=== PATIENT | male | born 1995 | race African-American/Black ===

== ENCOUNTER 2016-12-15 19:59 | Emergency (ER) | payer OTHER ==
[2016-12-15] MEDS ORDERED: ONDANSETRON 4 MG ORAL DISINTEGRATING TAB (S0181) As Ordered ONE (21:11)
--- NOTE | 2016-12-15 22:37 | EDDOCDS ---
Nurse's Notes [facility] Name: Tino Cunha Age: 21 yrs Sex: Male : 1995 Arrival Date: 12/15/2016 Time: 19:59 Bed TR6 Private MD: Other - Complete Info On Cds Diagnosis: Nausea with vomiting, unspecified;Diarrhea, unspecified Presentation: 12/15 20:04 Presenting complaint: Patient states: fever, stomach cramps, nausea, diarrhea for the dsf past 24 hours. Adult Sepsis Screening: The patient does not have new or worsening altered mentation. Patient's respiratory rate is less than 22. Systolic blood pressure is greater than 100. Patient has a qSOFA score of 0- Negative Sepsis Screen. Suicide/Homicide risk assessment- the patient denies having any suicidal and/or homicidal ideations and does not present with any other emotional, behavioral or mental health complaints. Status: The patient is an active duty branch service associate. Transition of care: patient was not received from another setting of care. 20:04 Acuity: KAI Level 3 dsf 20:04 Method Of Arrival: Walkin/Carried/Asstd dsf Triage Assessment: 20:05 General: Appears in no apparent distress, Behavior is appropriate for age, cooperative, dsf Reports fever for 12-24 hours, fatigue for 12-24 hours. Pain: Location: abdomen Pain currently is 10 out of 10 on a pain scale. Quality of pain is described as crampy. 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 Respiratory: Airway is patent Respiratory effort is even, unlabored, Respiratory pattern is regular, symmetrical, Reports cough that is non-productive. GI: Reports diarrhea, nausea. Historical: - Allergies: no known allergies; - Home Meds: 1. Tylenol 500 mg Oral 2 tabs as needed (Last dose: 12/15/2016 16:30) - PMHx: none; - PSHx: none; - Social history: Smoking status: Patient states was never smoker of tobacco. No barriers to communication noted, The patient speaks fluent Chinese, Speaks appropriately for age. - : The pt / caregiver states he / she is not on anticoagulants. Home medication list is obtained from the patient. - Exposure Risk Screening:: None identified. Assessment: 21:54 General: pt able to take and retain p.o. fluids. cz Vital Signs: 20:02 BP 117 / 66; Pulse 84; Resp 18 S; Temp 99.7(O); Pulse Ox 100% on R/A; Weight 106.59 kg gr2 (R); Height 6 ft. 0 in. (182.88 cm) (R); Pain 5/10; 22:20 BP 129 / 69; Pulse 77; Resp 20; Temp 97.9(O); Pulse Ox 99% on R/A; Pain 6/10; jmv 20:02 Body Mass Index 31.87 (106.59 kg, 182.88 cm) gr2 Vitals: 20:02 Log In Time: December 15, 2016 at 20:02. gr2 ED Course: 20:01 Patient visited by Brent Tim. gr2 20:01 Other - Complete Info On Cds is Private Physician. gr2 20:01 Patient moved to Waiting gr2 20:03 Patient visited by Brent Tim. gr2 20:03 Patient moved to Pre RCE gr2 20:05 Triage Initiated dsf 20:47 Patient moved to Triage 1 cz 21:00 Jose Mari PA-C is PHCP. dk1 21:00 Asa Olguin DO is Attending Physician. dk1 21:02 Patient visited by Jose Mari PA-C. dk1 21:15 Patient moved to PR cz 21:17 Patient name changed from Tino\S\L\S\Alphonse\S\ to Tino\S\Awde\S\Alphonse. EDMS 21:19 [facility] Payment Agreement was scanned into [employer] and attached to record. gb 21:54 Patient visited by Carlin Johns RN. cz 22:10 [facility]. dk1 22:21 Patient visited by Luisito Peña PCA. jmv 22:29 Patient moved to TR6 cz Administered Medications: 21:15 Drug: Ondansetron ODT 4 mg [ondansetron 4 mg disintegrating tablet (1 tabs)] Route: PO; cz Order Results: There are currently no results for this order. Outcome: 22:11 Discharge ordered by Provider. dk1 22:36 Discharge Assessment: Patient awake, alert and oriented x 3. No cognitive and/or cz functional deficits noted. Patient verbalized understanding of disposition instructions. patient administered narcotics - no. The following High Risk Discharge criteria are identified: None. Discharged to home ambulatory, with family. Condition: stable. Discharge instructions given to patient, Instructed on discharge instructions, follow up and referral plans. medication usage, Demonstrated understanding of instructions, medications, Pt was receptive of discharge instructions/ teaching. Prescriptions given X 1. No special radiology studies were completed. Property :Personal belongings accompany Pt. 22:37 Patient left the ED. cz Signatures: Dispatcher [employer] EDTX Carlin Johns RN RN Claudia Hager, Reg Reg gb Jose Mari, PA-C PA-C dk1 Tori OrozcoRN RN clydef Brent Tim gr2 Luisito Peña, ARCHIE TEAM FOREMAN menav MTDD
--- NOTE | 2016-12-15 22:37 | EDDOCDS ---
Physician Documentation [facility] Name: Tino Cunha Age: 21 yrs Sex: Male : 1995 Arrival Date: 12/15/2016 Time: 19:59 Bed TR6 Private MD: Other - Complete Info On Cds Disposition: 12/15/16 22:11 Discharged to Home/Self Care. Impression: Nausea with vomiting, unspecified, Diarrhea, unspecified. - Condition is Stable. - Discharge Instructions: Food Choices to Help Relieve Diarrhea, Adult, Diarrhea, Nausea and Vomiting. - Prescriptions for ZOFRAN ODT 4 mg - dissolve 1 tablet by ORAL route 4 times per day As needed do not chew, do not swallow whole; 10 tablet. - Medication Reconciliation, Local Pharmacy Hours form. - Follow up: Robyn Hooks [facility]; When: 2 - 3 days; Reason: Continuance of care. Follow up: Emergency Department; When: As needed; Reason: Worsening of conditions. - Problem is new. - Symptoms have improved. Historical: - Allergies: no known allergies; - Home Meds: 1. Tylenol 500 mg Oral 2 tabs as needed (Last dose: 12/15/2016 16:30) - PMHx: none; - PSHx: none; - Social history: Smoking status: Patient states was never smoker of tobacco. No barriers to communication noted, The patient speaks fluent Tajik, Speaks appropriately for age. - : The pt / caregiver states he / she is not on anticoagulants. Home medication list is obtained from the patient. - Exposure Risk Screening:: None identified. Vital Signs: 12/15 20:02 BP 117 / 66; Pulse 84; Resp 18 S; Temp 99.7(O); Pulse Ox 100% on R/A; Weight 106.59 kg gr2 / 234.99 lbs (R); Height 6 ft. 0 in. (182.88 cm) (R); Pain 5/10; 22:20 BP 129 / 69; Pulse 77; Resp 20; Temp 97.9(O); Pulse Ox 99% on R/A; Pain 6/10; jmv 20:02 Body Mass Index 31.87 (106.59 kg, 182.88 cm) gr2 MDM: 21:05 Ondansetron ODT Oral Disintegrating Tablet 4 mg PO once ordered. dk1 21:05 Fluid Challenge ordered. dk1 21:13 Financial registration complete. gb 21:19 ON LICENSE OF [facility] Payment Agreement was scanned into LO[employer] and attached to record. gb Administered Medications: 21:15 Drug: Ondansetron ODT 4 mg [ondansetron 4 mg disintegrating tablet (1 tabs)] Route: PO; cz Signatures: Carlin Johns RN RN cz Claudia Caceres, Reg Reg gb Jose Mari, PAOrtizC PAOrtizC hawa1 Tori OrozcoRN RN dsf The chart was reviewed and I authenticate all verbal orders and agree with the evaluation and treatment provided.Attachments: 21:19 ON LICENSE OF [facility] Payment Agreement gb MTDD
--- NOTE | 2016-12-17 23:37 | EDDOCDS ---
Physician Documentation [facility] Name: Tino Cunha Age: 21 yrs Sex: Male : 1995 Arrival Date: 12/15/2016 Time: 19:59 Bed TR6 Private MD: Other - Complete Info On Cds Disposition: 12/15/16 22:11 Discharged to Home/Self Care. Impression: Nausea with vomiting, unspecified, Diarrhea, unspecified. - Condition is Stable. - Discharge Instructions: Food Choices to Help Relieve Diarrhea, Adult, Diarrhea, Nausea and Vomiting. - Prescriptions for ZOFRAN ODT 4 mg - dissolve 1 tablet by ORAL route 4 times per day As needed do not chew, do not swallow whole; 10 tablet. - Medication Reconciliation, Local Pharmacy Hours form. - Follow up: Robyn Hooks [facility]; When: 2 - 3 days; Reason: Continuance of care. Follow up: Emergency Department; When: As needed; Reason: Worsening of conditions. - Problem is new. - Symptoms have improved. Historical: - Allergies: no known allergies; - Home Meds: 1. Tylenol 500 mg Oral 2 tabs as needed (Last dose: 12/15/2016 16:30) - PMHx: none; - PSHx: none; - Social history: Smoking status: Patient states was never smoker of tobacco. No barriers to communication noted, The patient speaks fluent Martiniquais, Speaks appropriately for age. - : The pt / caregiver states he / she is not on anticoagulants. Home medication list is obtained from the patient. - Exposure Risk Screening:: None identified. Vital Signs: 12/15 20:02 BP 117 / 66; Pulse 84; Resp 18 S; Temp 99.7(O); Pulse Ox 100% on R/A; Weight 106.59 kg gr2 / 234.99 lbs (R); Height 6 ft. 0 in. (182.88 cm) (R); Pain 5/10; 22:20 BP 129 / 69; Pulse 77; Resp 20; Temp 97.9(O); Pulse Ox 99% on R/A; Pain 6/10; jmv 20:02 Body Mass Index 31.87 (106.59 kg, 182.88 cm) gr2 MDM: 21:05 Ondansetron ODT Oral Disintegrating Tablet 4 mg PO once ordered. dk1 21:05 Fluid Challenge ordered. dk1 21:13 Financial registration complete. gb 21:19 [facility] Payment Agreement was scanned into [employer] and attached to record. gb 12/16 10:29 T-Sheet-- Draft Copy was scanned into [employer] and attached to record. gb Administered Medications: 12/15 21:15 Drug: Ondansetron ODT 4 mg [ondansetron 4 mg disintegrating tablet (1 tabs)] Route: PO; cz Signatures: Carlin Johns RN RN cz Claudia Caceres, Reg Reg gb Jose Mari PAMicha PAMicha dk1 Tori OrozcoRN RN dsf The chart was reviewed and I authenticate all verbal orders and agree with the evaluation and treatment provided.Attachments: 21:19 [facility] Payment Agreement gb 12/16 10:29 T-Sheet-- Draft Copy gb Chart Complete MTDD
--- NOTE | 2016-12-17 23:37 | EDDOCDS ---
Physician Documentation [facility] Name: Tino Cunha Age: 21 yrs Sex: Male : 1995 Arrival Date: 12/15/2016 Time: 19:59 Bed TR6 Private MD: Other - Complete Info On Cds Disposition: 12/15/16 22:11 Discharged to Home/Self Care. Impression: Nausea with vomiting, unspecified, Diarrhea, unspecified. - Condition is Stable. - Discharge Instructions: Food Choices to Help Relieve Diarrhea, Adult, Diarrhea, Nausea and Vomiting. - Prescriptions for ZOFRAN ODT 4 mg - dissolve 1 tablet by ORAL route 4 times per day As needed do not chew, do not swallow whole; 10 tablet. - Medication Reconciliation, Local Pharmacy Hours form. - Follow up: Robyn Hooks [facility]; When: 2 - 3 days; Reason: Continuance of care. Follow up: Emergency Department; When: As needed; Reason: Worsening of conditions. - Problem is new. - Symptoms have improved. Historical: - Allergies: no known allergies; - Home Meds: 1. Tylenol 500 mg Oral 2 tabs as needed (Last dose: 12/15/2016 16:30) - PMHx: none; - PSHx: none; - Social history: Smoking status: Patient states was never smoker of tobacco. No barriers to communication noted, The patient speaks fluent Malawian, Speaks appropriately for age. - : The pt / caregiver states he / she is not on anticoagulants. Home medication list is obtained from the patient. - Exposure Risk Screening:: None identified. Vital Signs: 12/15 20:02 BP 117 / 66; Pulse 84; Resp 18 S; Temp 99.7(O); Pulse Ox 100% on R/A; Weight 106.59 kg gr2 / 234.99 lbs (R); Height 6 ft. 0 in. (182.88 cm) (R); Pain 5/10; 22:20 BP 129 / 69; Pulse 77; Resp 20; Temp 97.9(O); Pulse Ox 99% on R/A; Pain 6/10; jmv 20:02 Body Mass Index 31.87 (106.59 kg, 182.88 cm) gr2 MDM: 21:05 Ondansetron ODT Oral Disintegrating Tablet 4 mg PO once ordered. dk1 21:05 Fluid Challenge ordered. dk1 21:13 Financial registration complete. gb 21:19 [facility] Payment Agreement was scanned into [employer] and attached to record. gb 12/16 10:29 T-Sheet-- Draft Copy was scanned into [employer] and attached to record. gb Administered Medications: 12/15 21:15 Drug: Ondansetron ODT 4 mg [ondansetron 4 mg disintegrating tablet (1 tabs)] Route: PO; cz Signatures: Carlin Johns RN RN cz Claudia Caceres, Reg Reg gb Jose Mari PAMicha PAMicha dk1 Tori OrozcoRN RN dsf The chart was reviewed and I authenticate all verbal orders and agree with the evaluation and treatment provided.Attachments: 21:19 [facility] Payment Agreement gb 12/16 10:29 T-Sheet-- Draft Copy gb Chart Complete MTDD
--- NOTE | 2016-12-17 23:37 | EDDOCDS ---
Nurse's Notes [facility] Name: Tino Cunha Age: 21 yrs Sex: Male : 1995 Arrival Date: 12/15/2016 Time: 19:59 Bed TR6 Private MD: Other - Complete Info On Cds Diagnosis: Nausea with vomiting, unspecified;Diarrhea, unspecified Presentation: 12/15 20:04 Presenting complaint: Patient states: fever, stomach cramps, nausea, diarrhea for the dsf past 24 hours. Adult Sepsis Screening: The patient does not have new or worsening altered mentation. Patient's respiratory rate is less than 22. Systolic blood pressure is greater than 100. Patient has a qSOFA score of 0- Negative Sepsis Screen. Suicide/Homicide risk assessment- the patient denies having any suicidal and/or homicidal ideations and does not present with any other emotional, behavioral or mental health complaints. Status: The patient is an active duty computer service technician. Transition of care: patient was not received from another setting of care. 20:04 Acuity: KAI Level 3 dsf 20:04 Method Of Arrival: Walkin/Carried/Asstd dsf Triage Assessment: 20:05 General: Appears in no apparent distress, Behavior is appropriate for age, cooperative, dsf Reports fever for 12-24 hours, fatigue for 12-24 hours. Pain: Location: abdomen Pain currently is 10 out of 10 on a pain scale. Quality of pain is described as crampy. 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 Respiratory: Airway is patent Respiratory effort is even, unlabored, Respiratory pattern is regular, symmetrical, Reports cough that is non-productive. GI: Reports diarrhea, nausea. Historical: - Allergies: no known allergies; - Home Meds: 1. Tylenol 500 mg Oral 2 tabs as needed (Last dose: 12/15/2016 16:30) - PMHx: none; - PSHx: none; - Social history: Smoking status: Patient states was never smoker of tobacco. No barriers to communication noted, The patient speaks fluent Sinhala, Speaks appropriately for age. - : The pt / caregiver states he / she is not on anticoagulants. Home medication list is obtained from the patient. - Exposure Risk Screening:: None identified. Assessment: 21:54 General: pt able to take and retain p.o. fluids. cz Vital Signs: 20:02 BP 117 / 66; Pulse 84; Resp 18 S; Temp 99.7(O); Pulse Ox 100% on R/A; Weight 106.59 kg gr2 (R); Height 6 ft. 0 in. (182.88 cm) (R); Pain 5/10; 22:20 BP 129 / 69; Pulse 77; Resp 20; Temp 97.9(O); Pulse Ox 99% on R/A; Pain 6/10; jmv 20:02 Body Mass Index 31.87 (106.59 kg, 182.88 cm) gr2 Vitals: 20:02 Log In Time: December 15, 2016 at 20:02. gr2 ED Course: 20:01 Patient visited by Brent Tim. gr2 20:01 Other - Complete Info On Cds is Private Physician. gr2 20:01 Patient moved to Waiting gr2 20:03 Patient visited by Brent Tim. gr2 20:03 Patient moved to Pre RCE gr2 20:05 Triage Initiated dsf 20:47 Patient moved to Triage 1 cz 21:00 Jose Mari PA-C is PHCP. dk1 21:00 Asa Olguin DO is Attending Physician. dk1 21:02 Patient visited by Jose Mari PA-C. dk1 21:15 Patient moved to PR cz 21:17 Patient name changed from Tino\S\L\S\Alphonse\S\ to Tino\S\Wade\S\Alphonse. EDMS 21:19 [facility] Payment Agreement was scanned into [employer] and attached to record. gb 21:54 Patient visited by Carlin Johns RN. cz 22:10 [facility]. dk1 22:21 Patient visited by Luisito Peña PCA. jmv 22:29 Patient moved to TR6 cz 12/16 10:29 T-Sheet-- Draft Copy was scanned into [employer] and attached to record. gb Administered Medications: 12/15 21:15 Drug: Ondansetron ODT 4 mg [ondansetron 4 mg disintegrating tablet (1 tabs)] Route: PO; cz Order Results: There are currently no results for this order. Outcome: 22:11 Discharge ordered by Provider. dk1 22:36 Discharge Assessment: Patient awake, alert and oriented x 3. No cognitive and/or cz functional deficits noted. Patient verbalized understanding of disposition instructions. patient administered narcotics - no. The following High Risk Discharge criteria are identified: None. Discharged to home ambulatory, with family. Condition: stable. Discharge instructions given to patient, Instructed on discharge instructions, follow up and referral plans. medication usage, Demonstrated understanding of instructions, medications, Pt was receptive of discharge instructions/ teaching. Prescriptions given X 1. No special radiology studies were completed. Property :Personal belongings accompany Pt. 22:37 Patient left the ED. cz Signatures: Dispatcher [employer] EDMS Carlin Johns, RN RN cz Claudia Caceres, Reg Reg Jose Quinn, PA-C PA-C dk1 Tori Orozco,RN RN Brent Lara gr2 Luisito Peña, ARCHIE PAPER BALING MACHINE OPERATOR jmv Chart Complete SARAH
== END 2016-12-15 22:37 | disposition home or self-care (01) ==
LOC: M ED 19:59
DX: R11.2 Nausea with vomiting, unspecified (principal); R19.7 Diarrhea, unspecified